=== PATIENT | female | born 1990 | race Caucasian/White ===

== ENCOUNTER 2016-06-15 15:35 | Emergency (ER) | payer OTHER ==
[2016-06-15 16:38] VITALS: BP 111/59
--- NOTE | 2016-06-15 17:15 | UC ---
Throat Pain/Nasal Grant HPI - HPI Summary HPI Summary: complaint of nasal congestion and cough that started approx 2 weeks ago for the past 4 days has some sinus pressure on the right side of her face intermittent headaches non productive cough felt like she had a fever yesterday but didn't check her temp denies ear pain denies shortness of breath has been using steam, taking acetaminophen with some effect - History of Current Complaint Chief Complaint: UCRespiratory Stated Complaint: SINUS COMPLAINT Time Seen by Provider: 06/15/16 17:09 Hx Obtained From: Patient Hx Last Menstrual Period: one year ago - Allergies/Home Medications Allergies/Adverse Reactions: Allergies Allergy/AdvReac Type Severity Reaction Status Date / Time No Known Allergies Allergy Verified 06/15/16 16:38 PMH/Surg Hx/FS Hx/Imm Hx Previously Healthy: Yes - 32 weeks Respiratory History Of: Reports: Asthma - uses albuterol prn - Surgical History Surgical History: None - Family History Known Family History: Positive: None Negative: Cardiac Disease, Hypertension, Diabetes - Social History Occupation: Employed Full-time Lives: With Family Alcohol Use: None Substance Use Type: None Smoking Status (MU): Never Smoked Tobacco - Immunization History Most Recent Influenza Vaccination: unknown Most Recent Tetanus Shot: 2009 Most Recent Pneumonia Vaccination: as child Review of Systems Constitutional: Fatigue Skin: Negative Eyes: Negative ENT: Nasal Discharge Respiratory: Negative Cardiovascular: Negative Gastrointestinal: Negative Genitourinary: Negative Motor: Negative Neurovascular: Negative Musculoskeletal: Negative Neurological: Headache Psychological: Negative All Other Systems Reviewed And Are Negative: Yes Physical Exam Triage Information Reviewed: Yes Appearance: No Pain Distress, Well-Nourished Vital Signs: Initial Vital Signs Temp 98.2 F 06/15/16 16:35 Pulse 84 06/15/16 16:35 Resp 18 06/15/16 16:35 BP 111/59 06/15/16 16:35 Pulse Ox 100 06/15/16 16:35 Vital Signs Reviewed: Yes Eyes: Positive: Conjunctiva Clear ENT: Positive: Pharyngeal erythema, Nasal congestion, Nasal drainage, TMs normal , Other: - frontal and mxillary sinus tenderness Neck: Positive: No Lymphadenopathy Respiratory: Positive: Lungs clear, Normal breath sounds, No respiratory distress Cardiovascular: Positive: RRR, No Murmur, Pulses Normal Abdomen Description: Positive: Nontender, Distended Musculoskeletal: Positive: No Edema Neurological: Positive: Alert Psychological Exam: Normal Skin Exam: Normal Throat Pain/Nasal Course/Dx - Course Course Of Treatment: exam completed. willtreat for sinusitis according to Up to date protocol with augmentin and followup with PATIENT REGISTRATION SUPERVISOR - Differential Dx/Diagnosis Differential Diagnosis/HQI/PQRI: Sinusitis, URI Provider Diagnoses: sinusitis Discharge - Discharge Plan Condition: Stable Disposition: HOME Prescriptions: Amoxicillin/Clavulanate TAB* [Augmentin TAB 875*] 875 mg PO BID #20 tab Saline NASAL SPRAY 0.65%* [Sodium Chloride 0.65% Nasal Miracle*] 1 spray BOTH NARES TID #1 btl Patient Education Materials: Sinusitis (ED) Referrals: No Primary Care Phys,NOPCP [Primary Care Provider] - [facility] [Outside] Additional Instructions: Please take antibiotic as directed Increase fluids and rest flush your sinuses with normal saline BID Take acetaminophen for fever or pain Please review your discharge instructions. If your symptoms do not improve please call your primary care provider or return to urgent care.
[2016-06-15] MEDS ORDERED: Amoxicillin/Clavulanate TAB* 875 MG PO ONE (17:24)
== END 2016-06-15 17:42 | disposition home or self-care (01) ==
LOC: UCEAST 15:35
DX: O26.893 Other specified pregnancy related conditions, third trimester (principal); Z3A.32 32 weeks gestation of pregnancy; J32.9 Chronic sinusitis, unspecified; J45.909 Unspecified asthma, uncomplicated
CPT/HCPCS: 99212; A9270-GY; G0463

== ENCOUNTER 2016-08-06 08:18 | Inpatient (IN) | payer OTHER ==
[2016-08-06] MEDS ORDERED: Oxytocin in LR* 20 UNITS/1,000 ML BAG IVPB SCH ×2 (09:00→16:00)
[2016-08-06] MEDS ORDERED: Oxytocin in LR* 20 UNITS/1,000 ML BAG IVPB ONE (09:12)
[2016-08-06 09:38] LABS: Hematocrit 37 % (35-47); Hemoglobin 12.3 g/dl (12.0-16.0); Mean Corpuscular HGB Conc 33 g/dl (31-36); Mean Corpuscular Hemoglobin 31 pg (27-31); Mean Corpuscular Volume 95 fL (80-97); Mean Platelet Volume 9 um3 (7.4-10.4); Red Blood Count 3.93 10^6/ul (4.0-5.4); Red Cell Distribution Width 16 % (10.5-15); White Blood Count 8.2 10^3/ul (3.5-10.8)
[2016-08-06] MEDS ORDERED: Albuterol HFA INHALER* 8 gm MDI INH PRN (12:40)
[2016-08-06] MEDS ORDERED: OBEPIDURAL* 250 ML ONE (13:46)
[2016-08-06] MEDS ORDERED: EPHEDrine (Pressors)* 50 MG/ML VIAL IV PUSH PRN ×2 (14:40)
[2016-08-06] MEDS ORDERED: Famotidine TAB* 20 MG PO PRN (14:40)
[2016-08-06] MEDS ORDERED: Phenylephrine IV* 40 MCG/ML 10 ML SYRINGE IV PUSH PRN ×2 (14:40)
[2016-08-06] MEDS ORDERED: Sodium Citrate/Citric Acid* 15 ML UDC PO PRN (14:40)
[2016-08-06] MEDS ORDERED: OBEPIDURAL* 250 ML EPIDURAL SCH (15:00)
[2016-08-06] MEDS ORDERED: Glycerin ADULT SUPP PR PRN (15:55)
[2016-08-06] MEDS ORDERED: oxyCODONE/Acetamin 5/325 MG* TAB PO PRN (15:55)
[2016-08-06] MEDS ORDERED: Dibucaine 1% 28.35 GM TUBE PR PRN (15:55)
[2016-08-06] MEDS ORDERED: Witch Hazel PAD* JAR TOPICAL PRN (15:55)
[2016-08-06] MEDS ORDERED: Simethicone CHEW TAB* 80 MG PO SCH (17:30)
[2016-08-06] MEDS: Ibuprofen TAB* 600 MG PO PRN (18:40)
[2016-08-06] MEDS: Docusate CAP* 100 MG PO SCH (21:09)
[2016-08-07] MEDS: Ibuprofen TAB* 600 MG PO PRN ×4 (00:21→21:38)
[2016-08-07] MEDS: Acetaminophen TAB* 325 MG PO PRN ×2 (03:04→13:28)
[2016-08-07 06:56] LABS: Hematocrit 35 % (35-47); Hemoglobin 11.7 g/dl (12.0-16.0); Mean Corpuscular HGB Conc 33 g/dl (31-36); Mean Corpuscular Hemoglobin 32 pg (27-31); Mean Corpuscular Volume 96 fL (80-97); Mean Platelet Volume 9 um3 (7.4-10.4); Red Blood Count 3.65 10^6/ul (4.0-5.4); Red Cell Distribution Width 16 % (10.5-15); White Blood Count 9.4 10^3/ul (3.5-10.8)
[2016-08-07] MEDS: Docusate CAP* 100 MG PO SCH ×3 (08:36→19:49)
[2016-08-07] MEDS ORDERED: Tetan/Diph/Pertus SYR(Tdap)* 0.5 ML SYR(BOOSTRIX) use SYR IM ONE (09:00)
[2016-08-07] MEDS ORDERED: Ferrous Gluconate TAB* 324 MG TAB PO SCH (09:00)
[2016-08-08] MEDS: Ibuprofen TAB* 600 MG PO PRN (07:23)
[2016-08-08 08:33] VITALS: BP 118/65
[2016-08-08] MEDS: Docusate CAP* 100 MG PO SCH (09:10)
== END 2016-08-08 13:14 | disposition home or self-care (01) | DRG 560 ==
LOC: MCHOBOUT 08:18 → MCHOB 08:36
PROVIDERS: ADMIT Midwife; ATTEND Midwife
PROC: 10E0XZZ Delivery of Products of Conception, External Approach (ICD-10-PCS; principal; 2016-08-06)
PROC: 0HQ9XZZ Repair Perineum Skin, External Approach (ICD-10-PCS; 2016-08-06)
PROC: 4A1HX4Z Monitoring of Products of Conception, Cardiac Electrical Activity, External Approach (ICD-10-PCS; 2016-08-06)
PROC: 3E033VJ Introduction of Other Hormone into Peripheral Vein, Percutaneous Approach (ICD-10-PCS; 2016-08-06)
DX: O69.1XX0 Labor and delivery complicated by cord around neck, with compression, not applicable or unspecified (principal); O70.0 First degree perineal laceration during delivery; Z3A.39 39 weeks gestation of pregnancy; Z37.0 Single live birth
CPT/HCPCS: 36415; 85025; 86850; 86900; 86901; 90715; A9270-GY